=== PATIENT | male | born 1990 | race Caucasian/White ===

== ENCOUNTER 2017-11-22 10:58 | Emergency (ER) | payer OTHER ==
[2017-11-22 10:59] VITALS: TEMP 37.1; Ht 180.3 cm
[2017-11-22] MEDS ORDERED: CYCLOBENZAPRINE HCL 10 MG TAB PO STA (11:21)
[2017-11-22] MEDS ORDERED: DEXAMETHASONE **PF** INJ 10 MG/ML VIAL IM STA (11:21)
[2017-11-22] MEDS ORDERED: KETOROLAC TROMETHAMINE 60 MG/2 ML VIAL IM STA (11:21)
[2017-11-22] MEDS ORDERED: OXYCODONE HCL IR 5 MG TAB (IMMEDIATE RELEASE) PO STA (11:21)
--- NOTE | 2017-11-22 12:20 | DIAGNOSTIC IMAGING REPORT ---
L-SPINE MIN 4 VIEWS ROUTINE HISTORY: Pain Low back pain with left radiculopathy COMPARISON: None. FINDINGS: There is no fracture. No subluxation. Minimal degenerative disc change. IMPRESSION: No fracture or subluxation within the lumbar spine. Minimal degenerative disc change. No acute process. The above report was generated using voice recognition software. It may contain grammatical, syntax or spelling errors. Electronically signed by: Asad Welch M.D. 11/22/2017 12:19 PM Dictated Date/Time: 11/22/2017 12:18 PM
[2017-11-22 12:29] VITALS: BP 132/98; PULSE 68; O2SAT 95
--- NOTE | 2017-11-22 12:42 | EMERGENCY ROOM VISIT NOTE ---
ED Visit Note First contact with patient: 11:05 CHIEF COMPLAINT: Low back pain HISTORY OF PRESENT ILLNESS: This 26-year-old male presents to ER with chief complaint of low back pain. The patient states that he was at work this morning when he felt a pop in his lower back. At the time of the injury the patient states that he was leveling off stones. He does not know if he was pushing the stones forward or bringing them back when it happened. He states he now gets intermittent sharp pains down his left leg mostly with sitting. The pain is better when standing and worse with sitting. He currently rates it at a 7 out of 10. He has not taken anything for pain. The patient denies any associated urinary symptoms, loss of bowel or bladder control or any saddle anesthesia. The patient denies any prior back injuries. REVIEW OF SYSTEMS: 6 system review was performed and was negative unless stated otherwise in history of present illness. PMH: The patient is healthy; tonsillectomy SOCIAL HISTORY: Patient lives with his daughter. The patient admits to tobacco use and occasional alcohol use. PHYSICAL EXAM: Vital Signs: Were reviewed reviewed Nurse's notes. GENERAL: 26- year-old obese white male appears in no acute distress. MENTAL STATUS: Alert and oriented 3. LUMBAR SPINE: No gross bony deformity noted. The patient is nontender to palpation over spinous processes. He is tender to palpation over the lower left paravertebral region. Right side nontender. Limited range in motion in all directions increased pain with flexion, left lateral bending and left rotation. Muscle strength is 5 out of 5 bilateral lower extremities and symmetrical. NEURO: Patient is able to heel and toe walk without difficulty. Bilateral patellar and Achilles reflexes are 2+. Negative straight leg bilaterally. EMERGENCY DEPARTMENT COURSE: The patient was evaluated. Patient's EMR medication list were reviewed. The x-ray of the lumbar spine was ordered interpreted by the radiologist and myself as below. The patient was given Decadron 10 mg IM, Toradol 60 mg IM, OxyIR 10 mg p.o. and Flexeril 10 mg p.o. DIAGNOSTICS:L-SPINE MIN 4 VIEWS ROUTINE HISTORY: Pain Low back pain with left radiculopathy COMPARISON: None. FINDINGS: There is no fracture. No subluxation. Minimal degenerative disc change. IMPRESSION: No fracture or subluxation within the lumbar spine. Minimal degenerative disc change. No acute process. The above report was generated using voice recognition software. It may contain grammatical, syntax or spelling errors. Electronically signed by: Asad Welch M.D. 11/22/2017 12:19 PM The patient was informed of the findings. The patient was reevaluated and stated he was feeling somewhat better. He states his pain was now tolerable. The patient was discharged home in stable condition with a friend driving. DIAGNOSIS: Low back pain with left sciatica DISCHARGE INSTRUCTIONS AND TREATMENT: Start Medrol Dosepak tomorrow. Ibuprofen 600 mg every 6 hours with food for pain. Rx is given for OxyIR 5 mg. 1-2 tablets every 6 hours as needed for more severe pain. Dispense [address] while taking the OxyIR patient was also given Rx for Flexeril 10 mg. One tablet p.o. every 8 hours for muscle spasms. Dispense [address] taking the Flexeril. Avoid staying in any one position for an extended period of time. If symptoms persist or worsen, follow up with your family doctor for referral for additional testing. Off work for 2 days. Current/Historical Medications No Active Prescriptions or Reported Meds Allergies Coded Allergies: No Known Allergies (Unverified , 11/22/17) Vital Signs Date Time Temp Pulse Resp B/P (MAP) Pulse Ox O2 Delivery O2 Flow Rate FiO2 11/22/17 12:29 68 18 132/98 95 Room Air 11/22/17 10:59 37.1 104 18 155/90 98 Room Air Medications Administered Medications (Trade) Dose Ordered Sig/Sotero Route Start Time Stop Time Status Last Admin Dose Admin Ketorolac Tromethamine (Toradol Inj) 60 mg NOW STAT IM 11/22/17 11:21 11/22/17 11:24 DC 11/22/17 11:43 60 MG Dexamethasone Sodium Phosphate (Dexamethasone Inj Pf) 10 mg NOW STAT IM 11/22/17 11:21 11/22/17 11:24 DC 11/22/17 11:42 10 MG Oxycodone HCl (Roxicodone Immediate Rel Tab) 10 mg NOW STAT PO 11/22/17 11:21 11/22/17 11:24 DC 11/22/17 11:42 10 MG Cyclobenzaprine HCl (Flexeril Tab) 10 mg NOW STAT PO 11/22/17 11:21 11/22/17 11:24 DC 11/22/17 11:42 10 MG Departure Information Prescriptions No Active Prescriptions or Reported Meds Patient Instructions [facility]
[2017-11-22] MEDS ORDERED: CYCL10TA6 PO (12:46)
[2017-11-22] MEDS ORDERED: METH4PAK PO (12:46)
[2017-11-22] MEDS ORDERED: OXYC1TAB3 PO (12:46)
== END 2017-11-22 12:56 | disposition home or self-care (01) ==
LOC: C.EDB 10:59 → C.EDD 12:56
DX: M54.42 Lumbago with sciatica, left side (principal); F17.200 Nicotine dependence, unspecified, uncomplicated